=== PATIENT | female | born 1965 | race American Indian/Alaskan Native ===

== ENCOUNTER 2021-03-20 08:00 | Outpatient (CLI) | payer OTHER | END 2021-03-20 08:30 | disposition home or self-care (01) | LOC: PPH VACUNA 08:00 | PROVIDERS: ATTEND Emergency Medicine Pediatric Emergency Medicine | DX: Z23 Encounter for immunization (principal) ==

== ENCOUNTER 2021-07-23 14:30 | Emergency (ER) | payer OTHER ==
[~2021-07-23] VITALS: Ht 154.9 cm; Wt 66.2 kg
[2021-07-23] MEDS ORDERED: OLMESARTAN MEDO40 MG PO (14:52)
[2021-07-23] MEDS ORDERED: AMLODIPINE BESYL5 MG PO (14:52)
[2021-07-23] MEDS ORDERED: FLUOXETINE HCL10 M1 PO (14:52)
[2021-07-23] MEDS ORDERED: ROSUVASTATIN CA10 MG PO (14:52)
== END 2021-07-23 17:02 | disposition home or self-care (01) ==
LOC: ER 14:30
DX: F41.9 Anxiety disorder, unspecified (principal); Z20.822 Contact with and (suspected) exposure to COVID-19